=== PATIENT | female | born 1950 | race African-American/Black ===

== ENCOUNTER → 2019-06-09 | Outpatient (CLI) | payer BC ==
[~2019-06-09] MED LIST: REGADENOSON 0.4 MG/5 ML DISP.SYRIN. IV ONE
--- NOTE | 2019-06-09 10:22 | PCVCIMAG ---
APPROVED REPORT Study performed: 06/09/2019 08:34:21 EXAM: Comprehensive 2D, Doppler, and color-flow Echocardiogram Patient Location: Echo lab Status: routine BSA: 1.66 HR: 90 bpmBP: 130/76 mmHg Rhythm: NSR Other Information Study Quality: Adequate Risk Factors: Cardiac Risk Factors: HTN, Hyperlipidemia Indications Palpitations near syncope 2D Dimensions IVSd: 10.60 (7-11mm) LVDd: 28.39 mm PWd: 9.53 (7-11mm)Ascending Ao: 31.71 (22-36mm) LVDs: 20.38 (25-40mm) Left Atrium: 30.91 (27-40mm) Aortic Root: 30.58 mm LV Single Plane 4CH: 58.84 % LV Single Plane 2CH: 71.32 % Biplane EF: 64.8 % Volumes Left Atrial Volume (Systole) Single Plane 4CH: 35.45 mLSingle Plane 2CH: 41.41 mL LA ESV Index: 26.00 mL/m2 Aortic Valve AoV Peak Panchito.: 1.21 m/s AO Peak Gr.: 5.86 mmHgLVOT Max P.99 mmHg LVOT Max V: 1.12 m/s Mitral Valve E/A Ratio: 1.5 MV Decel. Time: 150.67 ms MV E Max Panchito.: 0.96 m/s MV A Panchito.: 0.65 m/s IVRT: 79.58 ms Pulmonary Valve PV Peak Panchito.: 0.95 m/sPV Peak Gr.: 3.61 mmHg Pulmonary Vein P Vein S: 0.34 m/sP Vein A: 0.55 m/s P Vein D: 0.55 m/sP Vein A Dur.: 117.6 msec P Vein S/D Ratio: 0.62 Tricuspid Valve TR Peak Panchito.: 2.41 m/s TR Peak Gr.: 23.30 mmHg TV Vmax: 0.50 m/s Left Ventricle The left ventricle is normal size. There is normal LV segmental wall motion. There is normal left ventricular wall thickness. Left ventricular systolic function is normal. The left ventricular ejection fraction is within the normal range. LVEF is 65%. Grade I - abnormal relaxation pattern. Right Ventricle The right ventricle is normal size. The right ventricular systolic function is normal. Atria The left atrium size is normal. The right atrium size is normal. Aortic Valve The aortic valve is normal in structure. No aortic regurgitation is present. There is no aortic valvular stenosis. Mitral Valve The mitral valve is normal in structure. Trace mitral regurgitation. No evidence of mitral valve stenosis. Tricuspid Valve The tricuspid valve is normal in structure. Mild tricuspid regurgitation with PAP of 30 mmHg. Pulmonic Valve The pulmonary valve is normal in structure. Mild pulmonic regurgitation. Great Vessels The aortic root is normal in size. IVC is normal in size and collapses >50% with inspiration. Pericardium There is no pericardial effusion. There is no pleural effusion. <Conclusion> The left ventricle is normal size. LVEF is 65%. The aortic valve is normal in structure. The mitral valve is normal in structure. Trace mitral regurgitation. The tricuspid valve is normal in structure. Mild tricuspid regurgitation with PAP of 30 mmHg. The pulmonary valve is normal in structure. Mild pulmonic regurgitation. There is no pericardial effusion.
--- NOTE | 2019-06-09 13:36 | PCVCIMAG ---
APPROVED REPORT Imaging Protocol: Rest Tc-99m/Stress Tc-99m 1 day Study performed: 06/09/2019 09:35:25 Indication: Near Syncope, Lightheadedness, Palpitations Patient Location: Out-Patient Stress Nurse: Zunilda Iraheta RN, Nayeli Diallo RN SC Tech:MENDEZ Logan Ht: 5 ft 3 in Wt: 139 lbs BSA: 1.66 m2 HR: 86 bpm BP: 150/89 mmHg BMI: 24.61 Rhythm: Sinus Rhythm, nonspecific ST abnormalities Medical History Medical History: Hyperlipidemia, Diabetes Medications: Losartan, Maxide, Zetia Allergies: Lisinopril, Compazine Cardiac Risk Factors: Age Pretest Chest Pain Characteristics: No chest pain Exercise History: Indeterminate Meds Held (24 hrs): Losartan Resting Data Rest SPECT myocardial perfusion imaging was performed in supine position 45 minutes following the intravenous injection of 9.8 mCi of Tc-99m Sestamibi. Time of rest injection: 0930 Date: 06/09/2019 Administration Route: IV Administration Site: Right AC Pharmacologic Stress Pharmacologic stress test was performed by injecting Regadenoson 0.4 mg IV push over 10-15 seconds immediately followed by the intravenous injection of 32.5 mCi of Tc-99m Sestamibi. Time of stress injection: 1100 Date: 06/09/2019 Administration Route: IV Administration Site: Right AC Gated Stress SPECT was performed 45 minutes after stress injection. The images were gated to evaluate regional wall motion and calculate left ventricular ejection fraction. Stress Test Details Stress Test: Pharmacologic stress testing performed using 0.4 mg of regadenoson per 5 mL given IV over 10 seconds. Reason for pharmacologic stress test: physical limitation. HRMax Heart Rate (APMHR): 154 bpm Resting HR: 86 bpmTarget HR (85% APMHR): 130 bpm Max HR Achieved: 125 bpm % of APMHR: 81 Recovery HR: 116 bpm BP Resting BP: 150/89 mmHg Max BP: 150/73 mmHg Recovery BP: 137/65 mmHg ECG Resting ECG: Sinus Rhythm, nonspecific ST abnormalities Stress ECG: Sinus Tachycardia, nonspecific ST abnormalities Arrhythmia: PVC's Recovery ECG: Sinus Tachycardia, nonspecific ST abnormalities Clinical Reason for Termination: Completed protocol Stress Symptoms: Dyspnea, Lightheaded Symptoms resolved with caffeine. Stress ECG Conclusion 1. adequate response to iv lexiscan 2. inadequate heart rate for ecg diagnosis Study Data Post stress, the left ventricular ejection was 82%.. SSS: 0 SRS: 0 SDS: 0 TID = 0.63. Perfusion Normal perfusion on both the stress and rest images. Nuclear Conclusion ECG Findings: non-diagnostic Clinical Findings: negative for ischemia Nuclear Findings: negative for ischemia Exercise Capacity: not assessed Left Ventricular Function: normal 1. low risk study 2. post stress lvef 82% without wall motion abnormalities <Conclusion> 1. adequate response to iv lexiscan 2. inadequate heart rate for ecg diagnosis
== END | disposition home or self-care (01) ==
LOC: PCVCIMAG 08:48
PROVIDERS: ATTEND Internal Medicine
DX: I08.8 Other rheumatic multiple valve diseases (principal); I10 Essential (primary) hypertension; E78.5 Hyperlipidemia, unspecified; R42 Dizziness and giddiness; Z88.8 Allergy status to other drugs, medicaments and biological substances
CPT/HCPCS: 78452; 93017; 93306; A9500; J2785